=== PATIENT | female | born 1970 | race Caucasian/White ===

== ENCOUNTER 2021-02-22 00:36 | Emergency (ER) | payer OTHER ==
[~2021-02-22] VITALS: Ht 154.9 cm; Wt 81.6 kg
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
[2021-02-22] MEDS ORDERED: HALOPERIDOL LACTATE INJ 5 MG/ML VIAL ONE (01:51)
[2021-02-22 01:53] LABS: BASOPHILS # (AUTO) 0.1 /CMM (0.0-0.2); BASOPHILS % (AUTO) 0.9 % (0.0-2.0); EOSINOPHILS % (AUTO) 1.5 % (0.0-6.0); HEMATOCRIT 41 % (33-45); HEMOGLOBIN 13.6 g/dL (11.5-14.8); LYMPHOCYTES # (AUTO) 2.4 /CMM (0.8-4.8); LYMPHOCYTES % (AUTO) 23.2 % (20.0-44.0); MEAN CORPUSCULAR HGB CONC 34 g/dl (31.0-36.0); MEAN CORPUSCULAR VOLUME 92 fL (82-100); MONOCYTES # (AUTO) 0.8 /CMM (0.1-1.30); MONOCYTES % (AUTO) 8.2 % (2.0-12.0); NEUTROPHILS # (AUTO) 6.8 /CMM (1.8-8.9); NEUTROPHILS % (AUTO) 66.2 % (43.0-81.0); PLATELET COUNT (AUTO) 434 /CMM (150-450); WHITE BLOOD COUNT (AUTO) 10.2 K/uL (4.3-11.0)
[2021-02-22] MEDS ORDERED: HALOPERIDOL LACTATE INJ 5 MG/ML VIAL IM ONE (02:00)
[2021-02-22] MEDS ORDERED: LORAZEPAM INJ 2 MG/ML VIAL IM ONE (02:30)
[2021-02-22 02:31] LABS: ALANINE AMINOTRANSFERASE 29 U/L (12-78); ALBUMIN 4.3 g/dL (3.4-5.0); ALCOHOL, BLOOD < 3 mg/dL (0-0); ALKALINE PHOSPHATASE 70 U/L (46-116); ASPARTATE AMINOTRANSFERASE 22 U/L (15-37); BILIRUBIN,DIRECT 0.1 mg/dL (0.0-0.2); BILIRUBIN,TOTAL 0.4 mg/dL (0.2-1.0); CALCIUM, SERUM 9.3 mg/dL (8.5-10.1); CARBON DIOXIDE 22 mmol/L (21-32); CHLORIDE 98 mmol/L (98-107); GLUCOSE 93 mg/dL (74-106); TOTAL PROTEIN, SERUM 7.9 g/dL (6.4-8.2); UREA NITROGEN, BLOOD 17 mg/dL (7-18)
[2021-02-22] MEDS ORDERED: LORAZEPAM INJ 2 MG/ML VIAL ONE (02:39)
[2021-02-22 02:41] LABS: SODIUM SERUM 89 mmol/L (136-145)
[2021-02-22 03:22] LABS: CALCIUM, SERUM 8.7 mg/dL (8.5-10.1); CREATININE 0.8 mg/dL (0.6-1.3); POTASSIUM 3.2 mmol/L (3.5-5.1)
--- NOTE | 2021-02-22 04:15 | NUR ---
PT EASILY AROUSBLE BY VOICE. AAOX4. DENIES SI/HI AT THIS TIME. STILL ON MONITOR, WILL CONTINUE TO MONITOR
--- NOTE | 2021-02-22 04:30 | NUR ---
URINE COLLECTED AND SENT TO LAB
[2021-02-22 04:36] LABS: BILIRUBIN,URINE Negative (NEGATIVE); COLOR,URINE YELLOW (YELLOW); LEUKOCYTE ESTERASE ,URINE Negative (NEGATIVE); NITRITE, URINE Negative (NEGATIVE); PH,URINE 6.5 (5.0-8.0); PROTEIN,URINE Negative (NEGATIVE); UGLUCOSE Negative (NEGATIVE); UROBILINOGEN,URINE 0.2 EU/dL (0.2)
[2021-02-22 05:21] LABS: BACTERIA,URINE 1+ /HPF (None Seen); MUCUS,URINE Few /LPF (None Seen); SQUAMOUS EPITHELIAL CELL,UR Few /HPF (None Seen); URINE AMORPHOUS URATE Few /HPF (None Seen); WBC,URINE 0-2 /HPF (0-3)
--- NOTE | 2021-02-22 08:15 | NUR ---
PATIENT AA/OX3, WITH EPISODE OF CONFUSION. BREATHING EVEN AND UNLABORED.
[2021-02-22] MEDS ORDERED: POTASSIUM CHLORIDE 20 MEQ TAB.PRT.SR PO ONE ×2 (08:28→08:30)
--- NOTE | 2021-02-22 08:39 | NUR ---
FOOD TRAY PROVIDED. CALLED CORN SHUCKER FOR CONSULT.
--- NOTE | 2021-02-22 09:03 | NUR ---
The patient is resting in bed in no apparent distress. Will continue to monitor the patient.
--- NOTE | 2021-02-22 10:13 | NUR ---
Fiction And Nonfiction Prose Writer note: commissioner of relocation services requested for consult for patient who was brought in for bizarre behavior. Upon consult, SW was unable to gather information for assessment as patient was resting and presented too drowsy to answer assessment questions. Patient did state that she did not want to return to her prior living arrangement, but when asked about alternative living arrangements patient provided SW with an incoherent answer. Patient's RN advised SW to return to meet with the patient at a later time today. SW will follow up with nursing staff for consult with the patient.
--- NOTE | 2021-02-22 14:29 | NUR ---
Snath Handle Assembler note: SW attempted to interview the patient however patient stated that she was feeling dizzy and requested SW to interview patient at a later time. SW notified RN in ED.
--- NOTE | 2021-02-22 15:08 | NUR ---
ICE GRINDER AT BEDSIDE.
--- NOTE | 2021-02-22 15:21 | NUR ---
Powder Blender, Shin Servin will evaluate this pt. ANUJA discussed with Art & ELECTRIC MOTORMAN, Idalia Soto. Per pt. she has [place] [employer] & Medicare insurance. ANUJA called admitting to follow up with insurance benefits.
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
[2021-02-22] MEDS ORDERED: ALPR1TAB7 PO (17:03)
--- NOTE | 2021-02-22 17:16 | NUR ---
PATIENT SEEN AND EVALUATED BY TALI TRIVEDI. PATIENT A/OX4, BREATHING EVEN AND UNLABORED, NO SOB NOTED, SON AT BEDSIDE. PATIENT DENIES SI/HI. SON IS OK TO TAKE PATIENT HOME. Patient discharged to home in stable condition. Written and verbal after care instructions given. Patient verbalizes understanding of instruction.
[2021-02-22 17:17] VITALS: BP 112/67
== END 2021-02-22 17:17 | disposition home or self-care (01) ==
LOC: ER 00:36
DX: R46.2 Strange and inexplicable behavior (principal); Z20.822 Contact with and (suspected) exposure to COVID-19; E87.6 Hypokalemia; E87.1 Hypo-osmolality and hyponatremia
CPT/HCPCS: 36415; 80048 ×2; 80076; 80299; 80307; 80320; 81001; 84702; 84703; 85025; 87426; 96372 ×2; 99285; C9803; J1630; J2060; G0480

== ENCOUNTER 2023-11-19 12:57 | Emergency (ER) | payer OTHER ==
[~2023-11-19] VITALS: Ht 165.1 cm; Wt 59.4 kg
[~2023-11-19 12:57] MED LIST: ALPR1TAB7 PO
[2023-11-19] MEDS ORDERED: HYDROCODONE/APAP 5/325MG TABLET ONE (14:00)
[2023-11-19] MEDS ORDERED: HYDROCODONE/APAP 5/325MG TABLET PO ONE (14:00)
[2023-11-19] MEDS ORDERED: IBUP-1955 PO (15:14)
[2023-11-19] MEDS ORDERED: HYDR-4303 PO (15:14)
[2023-11-19 15:38] VITALS: BP 133/84; TEMP 98; O2SAT 100
== END 2023-11-19 15:38 | disposition home or self-care (01) ==
LOC: ER 13:02
DX: S82.392D Other fracture of lower end of left tibia, subsequent encounter for closed fracture with routine healing (principal); V03.90XD Pedestrian on foot injured in collision with car, pick-up truck or van, unspecified whether traffic or nontraffic accident, subsequent encounter
CPT/HCPCS: 73502; 73562; 73590-TC; 73610-TC